=== PATIENT | male | born 1970 | race Caucasian/White ===

== ENCOUNTER 2017-01-27 07:56 | Emergency (ER) | payer OTHER ==
[~2017-01-27] VITALS: Ht 177.8 cm; Wt 88.6 kg
[2017-01-27 07:58] VITALS: BP 123/74; PULSE 66; RESP 18; O2SAT 98
--- NOTE | 2017-01-27 08:24 | ED.REPORT ---
HPI-Extremity Problem Upper Date of Service January 27, 2017 ED Provider: Kendal Patterson MD Patient is a 46 year old male who presents to the ED due to a wound check. The patient reports that he was seen at [facility] in [place] after a laceration to his right arm. He presents to the ED to have his wound checked after having it sutured up. Nursing Notes Stated Complaint: RIGHT ARM WOUND Chief Complaint: Laceration Nursing Notes Reviewed: Yes Allergies: Coded Allergies: No Known Allergies (Unverified , 01/27/17) General Time Seen by MD: 08:23 Chief Complaint Forearm injury right Hx Obtained From: Patient Arrived By: Walk-in Location: : Forearm right Immunizations: Tetanus up to date Recent Healthcare: No recent hospitalization, Recent doctor visit Similar Sx Previous: No Past Medical History Past Medical History Notes: Records from initial injury and initial laceration repair are reviewed today Physical Exam Initial Vital Signs Vital Signs (First) Date Time Temp Pulse Resp B/P Pulse Ox O2 Delivery O2 Flow Rate FiO2 01/27/17 07:58 36.2 66 18 123/74 98 Room Air Initial VS: Reviewed General/Constitutional: Awake, Alert, No acute distress Respiratory / Chest: Atraumatic, No respiratory distress Upper Extremity / MS: Full range of motion, No erythema 6cm mostly healed laceration to the right forearm 5cm deeper laceration with central opening for drainage no evidence of infection Skin: Color NL, No rash, Warm, Dry Neurologic: Oriented X3, Speech NL, No motor deficits, No sensory deficits Head / Eyes: Atraumatic, Normocephalic, PERRL, EOMI Lower Extremity / Pelvis / MS: Atraumatic, Full range of motion Psychiatric: Affect NL, Mood NL Procedures Laceration Management Time: 10:43 Procedure Performed by: ED physician Consent / Setup / Site Prep: Consent from patient, Time-out performed, Hand hygiene observed Local Anesthesia: Lidocaine 1% Debridement: Yes (to bleeding healthy tissue) Irrigation: Copious Repair Skin: Nylon # Sutures - Skin: 4 Suture Technique: Simple Post-Procedure / Complications: No complications, Condition improved, Tolerated procedure well, Patient stable Re-Eval/Medical Decision Re-Evaluation/Progress : Time of Eval: 11:02 Patient Status: Condition improved Re-Evaluation/Progress Note: Discussed plan for discharge. The patient understands and agrees to the plan for discharge. All questions were addressed. Counseled Regarding: Diagnosis, Need for follow-up, When/why to return to ED Discharge & Departure Impression: Primary Impression: Laceration Additional Impressions: Visit for wound check Delayed postoperative wound closure Disposition: Home Discharge Condition All VS Reviewed: Yes Condition: Stable Patient Instructions: Laceration (ED) Additional Instructions: We cleaned out a little more debridement and put in secondary sutures. Keep the wound clean and for the next couple of days. The suturs will need to be removed in about a week. You can return to the emergency department or follow up with your primary care physician to have this done. Once you've had the stitches removed you should keep the wound dry and clean for a few more days. Please return to the emergency department sooner if you see any signs of infection including whole arm or wrist pain, redness, pus or drainage. Thanks for waiting today! Happy healing Referrals: Glenn Ramey MD (PCP) Jose D Attestation Portions of this note were transcribed by Ivonne Brenner. I, Dr. Patterson personally performed the history, physical exam and medical decision-making; I reviewed and confirmed the accuracy of the information in the transcribed note. Signed by: Jose D Verma, 01/27/17 and 0910 copies to: Glenn Ramey MD, Shawna L MD January 27, 2017 08:24 Emma Brenner January 27, 2017 08:59
== END 2017-01-27 11:09 | disposition home or self-care (01) ==
LOC: SED 07:56
DX: S51.811D Laceration without foreign body of right forearm, subsequent encounter (principal); X58.XXXD Exposure to other specified factors, subsequent encounter; Y93.9 Activity, unspecified; Y92.9 Unspecified place or not applicable; Y99.9 Unspecified external cause status